=== PATIENT | male | born 1955 | race Caucasian/White ===

== ENCOUNTER 2017-08-22 14:02 | Outpatient (CLI) | payer OTHER ==
[2017-08-22 15:58] LABS: #Eosinphils 0.1 thou/uL (0.0-0.7); #Lymphocytes 1.8 thou/uL (1.20-3.40); #Monocytes 0.5 thou/uL (0.11-0.59); #Neutrophils 2.7 thou/uL (1.40-6.50); %Basophils 0.2 % (0.0-1.0); %Eosinophils 2.8 % (0.0-10.0); %Lymphocytes 35.1 % (21.0-51.0); %Monocytes 10.3 % (0.0-10.0); %Neutrophils 51.6 % (42.0-75.0); Hemoglobin 15.3 g/dL (14.0-18.0); Mean Corpuscular HGB CONC 33.5 g/dL (32.0-36.0); Mean Corpuscular Hemoglobin 30.3 pg (27.0-31.0); Mean Corpuscular Volume 90.3 fl (80.0-94.0); Mean Platelet Volume 7.6 fL (7.4-10.4); Platelet Count 200 thou/uL (130-400); Red Blood Cell (RBC) Count 5.07 mill/uL (4.70-6.10); White Blood Cell (WBC) Count 5.2 thou/uL (4.8-10.8)
[2017-08-22 16:20] LABS: Anion Gap 11 mmol/L (10-20); BUN (Urea Nitrogen) 15 mg/dL (8.4-25.7); Calc. Creatinine Clearance 0 mL/min (70-130); Calcium 9.6 mg/dL (7.8-10.44); Carbon Dioxide 27 mmol/L (23-31); Chloride 105 mmol/L (98-107); Estimated GFR-MDRD 84; Glucose 92 mg/dL (80-115); Sodium 139 mmol/L (136-145)
--- NOTE | 2017-08-30 19:50 | EKG ---
Test Reason : Blood Pressure : / mmHG Vent. Rate : 066 BPM Atrial Rate : 066 BPM P-R Int : 164 ms QRS Dur : 098 ms QT Int : 396 ms P-R-T Axes : 051 048 028 degrees QTc Int : 415 ms Normal sinus rhythm Normal ECG No previous ECGs available Confirmed by HAYES DENISE (2) on 08/30/2017 7:50:06 PM Referred By: IERO Confirmed By:HAYES DENISE
== END 2017-08-22 14:03 | disposition home or self-care (01) ==
LOC: LABBT 14:02
PROVIDERS: ATTEND Orthopaedic Surgery
DX: Z01.810 Encounter for preprocedural cardiovascular examination (principal); Z01.812 Encounter for preprocedural laboratory examination; M25.862 Other specified joint disorders, left knee
CPT/HCPCS: 80048; 85025; 93005; 93010

== ENCOUNTER 2017-08-24 07:01 | Day surgery (SDC) | payer OTHER ==
[2017-08-22 14:29] VITALS: BMI 28.5
[2017-08-24] MEDS ORDERED: Diprivan 20 ML ONE (07:32)
[2017-08-24] MEDS ORDERED: CEFAZOLIN/Water 2 GM/20 ML SYRINGE ONE (07:52)
[2017-08-24] MEDS ORDERED: HYDROmorphone 0.5 MG/0.5 ML SYRINGE ONE (08:33)
[2017-08-24] MEDS ORDERED: Metoclopramide HCl 10 MG/2 ML VIAL ONE ×2 (08:40→13:49)
--- NOTE | 2017-08-24 10:50 | OP ---
DATE OF SERVICE: 08/24/2017 POSTOPERATIVE DIAGNOSIS: Left knee, grade 4, lesion, medial femoral condyle with unstable chondral l oose body sitting in the crater. POSTOPERATIVE DIAGNOSES: 1. Left knee, grade 4, lesion, medial femoral condyle with unstable chondral loose body sitting in t he crater. 2. Multiple small cartilaginous loose bodies floating around the knee as well as the large loose cho ndral body inside the grade 4 lesion. PROCEDURE PERFORMED: 1. Knee arthroscopy with debridement and shaving. 2. Removal of loose body greater than 1 cm. SURGEON: Michael Munroe M.D. MANUAL ARTS THERAPIST: None. BLOOD LOSS: Minimal. COMPLICATIONS: None. DISPOSITION: He went to recovery room in stable condition. He did have a general anesthetic as well as a local knee block. 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 At this time, he had to have surgery. OPERATIVE PROCEDURE: After all appropriate consent forms were explained and signed, he was taken quirino k to the operating room and at this time was given general anesthetic. Once the level of anesthesia was appropriate, the tourniquet was placed on left thigh. Leg was placed in arthroscopic leg trejo. It was then prepped and draped in standard surgical fashion. Limb was exsanguinated and tourniquet was taken to 300 mmHg. Inferolateral portal established, and scope was placed into the knee joint. A needle localization technique was then used to make a medial working portal. Diagnostic arthrosco py commenced in the notch. The ACL and PCL were probed and found to be intact. There was significan t amount of synovitis. There was a large loose body, which had been scarred into the anterior fat pa d. The fat pad and the loose body were removed with the shaver. There was a large piece of cartilag e, which was still barely attached on his most medial aspect of the medial femoral condyle over a gra de 4 lesion and this was removed with a grasper. The size of this was approximately 1.2 cm. The edg es of the chondral defect were then debrided. We did leave alone any cartilage scar tissue that was already in the bases. This was obviously an old lesion, but it probably just had a new disruption an d loose body formation. Remaining medial compartment showed the tibia to be overall in good conditio n. The medial meniscus was intact. The gutters were swept through. Again, a significant amount of small cartilaginous loose bodies and some synovitis, which were all removed with the shaver device. The patellofemoral joint showed the patella to be in good condition. The trochlea had grade 3 and 4 changes with some stable fibrocartilaginous services grown on to it and no treatment was needed. Lat eral gutter again showed some small cartilaginous loose bodies and synovitis. Again, this was debrid ed with the shaver. We then went to the lateral compartment and the femur was in good condition as w ell as the tibia and the lateral meniscus, but in placing the shaver in the lateral compartment we re moved a ton of large cartilaginous loose bodies that were stuck underneath the lateral meniscus, and especially in the popliteal hiatus. This was at least in the realm of 6-7 fairly large loose bodies, but none were greater than 1 cm. At this time, we went through the knee one more time making sure t here were no loose bodies remaining. There were none. We then again removed the scope, drained the knee and closed each portal with simple nylon stitch. Bulky sterile dressing was applied and the shantelle rniquet was let down. Toes pinked up nicely. The patient was awakened. He was taken to the recover y room in stable condition. All counts were correct at the end the case and he did receive preoperat quita IV antibiotics.
[2017-08-24] MEDS ORDERED: Lidocaine 2% w/Epinephrine 1:200K 20 ML VIAL ONE (13:37)
[2017-08-24] MEDS ORDERED: Bupivacaine HCl 0.5%/Epinephrine 1:200,000/PF 30 ml Vial ONE (13:37)
[2017-08-24] MEDS ORDERED: diphenhydrAMINE 50 MG/ML VIAL ONE (13:49)
[2017-08-24] MEDS ORDERED: Ketorolac Tromethamine 30 MG/ML VIAL ONE (13:49)
[2017-08-24] MEDS ORDERED: Ondansetron HCl/PF 4 MG/2 ML Vial ONE (13:49)
[2017-08-24] MEDS ORDERED: Dexamethasone 20 MG/5 ML VIAL ONE (13:49)
[2017-08-24] MEDS ORDERED: Lidocaine 1% PF 5 ML VIAL ONE (13:49)
[2017-08-24] MEDS ORDERED: Propofol 200 MG/20 ML VIAL ONE (13:49)
== END 2017-08-24 11:45 | disposition home or self-care (01) ==
LOC: SDC 07:01
PROVIDERS: ATTEND Orthopaedic Surgery
PROC: 0SCD4ZZ Extirpation of Matter from Left Knee Joint, Percutaneous Endoscopic Approach (ICD-10-PCS; principal; 2017-08-24)
PROC: 0SBD4ZZ Excision of Left Knee Joint, Percutaneous Endoscopic Approach (ICD-10-PCS; principal; 2017-08-24)
DX: M25.862 Other specified joint disorders, left knee (principal); M23.42 Loose body in knee, left knee; E78.5 Hyperlipidemia, unspecified; Z79.82 Long term (current) use of aspirin; Z79.899 Other long term (current) drug therapy; Z91.013 Allergy to seafood
CPT/HCPCS: 93005; 93010; G8978-GP-CI; G8979-GP-CI; G8980-GP-CI; J0670; J1100; J1170; J1200; J1885; J2001; J2405; J2704; J2765

== ENCOUNTER 2020-03-24 10:00 | Outpatient (CLI) | payer MEDICARE, OTHER ==
--- NOTE | 2020-03-24 10:52 | RAD ---
XR Chest Pa Lat STANDARD History: Pneumonia Comparison: None. Findings: Abnormal peripheral opacities in the upper lobes. No pneumothorax. No effusion. No acute os seous abnormality. Cardiac silhouette and mediastinal contours are within normal limits. Impression: Findings of bilateral upper lobe pneumonia can be seen as atypical viral infectious proce ss. Follow-up recommended.
== END 2020-03-24 10:01 | disposition home or self-care (01) ==
LOC: BICRAD 10:00
PROVIDERS: ATTEND Emergency Medicine
DX: R06.02 Shortness of breath (principal); J12.9 Viral pneumonia, unspecified
CPT/HCPCS: 71046

== ENCOUNTER 2020-03-24 12:30 | Emergency (ER) | payer MEDICARE, OTHER ==
[2020-03-24] MEDS ORDERED: Dexamethasone 10 MG/ML VIAL ONE (12:46)
[2020-03-24 13:20] LABS: #Eosinphils 0.1 thou/uL (0.0-0.7); #Lymphocytes 1.4 thou/uL (1.20-3.40); #Monocytes 0.9 thou/uL (0.11-0.59); #Neutrophils 4.9 thou/uL (1.40-6.50); %Basophils 0.1 % (0.0-1.0); %Eosinophils 0.8 % (0.0-10.0); %Lymphocytes 18.5 % (21.0-51.0); %Monocytes 12.9 % (0.0-10.0); %Neutrophils 67.7 % (42.0-75.0); Mean Corpuscular HGB CONC 33.7 g/dL (32.0-36.0); Mean Corpuscular Hemoglobin 30.5 pg (27.0-31.0); Mean Corpuscular Volume 90.5 fL (78.0-98.0); Mean Platelet Volume 8.5 fL (7.4-10.4); Platelet Count 163 thou/uL (130-400); Red Blood Cell (RBC) Count 5.24 mill/uL (4.70-6.10); White Blood Cell (WBC) Count 7.3 thou/uL (4.8-10.8)
[2020-03-24 13:33] LABS: ALT (SGPT) 36 U/L (8-55); AST (SGOT) 30 U/L (5-34); Albumin 4.1 g/dL (3.4-4.8); Alkaline Phosphatase 127 U/L (40-110); Anion Gap 10 mmol/L (10-20); BUN (Urea Nitrogen) 17 mg/dL (8.4-25.7); Bilirubin, Total 1.4 mg/dL (0.2-1.2); Calc. Creatinine Clearance 0 mL/min (70-130); Calcium 8.8 mg/dL (7.8-10.44); Carbon Dioxide 26 mmol/L (23-31); Chloride 105 mmol/L (98-107); Estimated GFR-MDRD 70; Globulin 3.9 g/dL (2.4-3.5); Glucose 112 mg/dL (80-115); Potassium 4.1 mmol/L (3.5-5.1); Sodium 137 mmol/L (136-145)
[2020-03-24] MEDS ORDERED: Iopamidol-370 76% 500 ML 1 ML ONE (13:51)
--- NOTE | 2020-03-24 14:49 | CT ---
CT PULMONARY ANGIOGRAM WITH IV CONTRAST AND 3-D POSTPROCESSING: HISTORY:Shortness of breath, COVID Positive pneumonia FINDINGS: There is good contrast opacification of the pulmonary arterial vasculature without filling defects to suggest pulmonary embolism. The thoracic aorta is well opacified without aneurysm or dissection. No pleural or pericardial effusions are seen. Patchy scattered groundglass opacities is seen bilaterally with upper zone dominance. No pneumothorac es are seen There are hemangiomas in the vertebral bodies in the thoracic spine Upper abdominal tomograms demonstrate no significant abnormalities.. IMPRESSION:. 1. No CT evidence of pulmonary embolism. 2. Findings are consistent with COVID19 pneumonia
== END 2020-03-24 15:29 | disposition home or self-care (01) ==
LOC: ERS 12:30
DX: U07.1 COVID-19 (principal); J12.89 Other viral pneumonia; E78.5 Hyperlipidemia, unspecified; E78.00 Pure hypercholesterolemia, unspecified; Z79.82 Long term (current) use of aspirin; Z79.899 Other long term (current) drug therapy
CPT/HCPCS: 71046; 71275; 80053; 83605; 84484; 85025; 93005; 96365; 96366; 96375; J1100; J1956; Q9967

== ENCOUNTER 2025-03-12 20:12 | Emergency (ER) | payer MEDICARE ==
[2025-03-12] MEDS ORDERED: Dexamethasone 10 MG/ML VIAL ONE (20:51)
== END 2025-03-12 21:01 | disposition home or self-care (01) ==
LOC: ERS 20:12
DX: T63.441A Toxic effect of venom of bees, accidental (unintentional), initial encounter (principal)
CPT/HCPCS: 99283; J1100